=== PATIENT | female | born 1950 | race Caucasian/White ===

== ENCOUNTER 2020-12-15 07:20 | Outpatient (CLI) | payer OTHER | END 2020-12-19 10:12 | disposition home or self-care (01) | LOC: RAD 07:20 | DX: K59.89 Other specified functional intestinal disorders (principal); R10.32 Left lower quadrant pain; R14.0 Abdominal distension (gaseous) ==

== ENCOUNTER 2023-04-29 05:20 | Day surgery (SDC) | payer OTHER ==
[~2023-04-29] VITALS: Ht 152.4 cm; Wt 83.0 kg
[~2023-04-29 05:20] MED LIST: DILTIAZEM ER120 MG PO; HYDROCHLOROTH12.5 MG PO; JANUVIA100 MG PO; SYNTHROID50 MCG PO
[2023-04-29] MEDS ORDERED: OXYC1TAB9 PO (11:12)
== END 2023-04-29 13:30 | disposition home or self-care (01) ==
LOC: CIR.AMB 05:20
PROVIDERS: ATTEND Surgery
DX: K62.5 Hemorrhage of anus and rectum (principal); K64.8 Other hemorrhoids; K64.4 Residual hemorrhoidal skin tags; Z20.822 Contact with and (suspected) exposure to COVID-19; I10 Essential (primary) hypertension; E11.9 Type 2 diabetes mellitus without complications

== ENCOUNTER → 2023-05-07 | Emergency (ER) | payer OTHER ==
[~2023-05-07] VITALS: Ht 152.4 cm; Wt 83.0 kg
[~2023-05-07] MED LIST changes: +OXYC1TAB9 PO
== END | disposition left against medical advice (07) ==
LOC: ER 11:31
DX: Z53.21 Procedure and treatment not carried out due to patient leaving prior to being seen by health care provider (principal)